=== PATIENT | male | born 1955 | race Caucasian/White ===

== ENCOUNTER 2018-04-05 13:33 | Outpatient (CLI) | payer BC ==
--- NOTE | 2018-04-05 16:44 | MRI ---
LUMBAR SPINE MRI NONCONTRAST: INDICATION: Lumbar spine disk herniation, low back pain. FINDINGS: There is edema localizing to prominent osteophytes of the anterior aspect of the L1 and L2 vertebral segments. No acute compression fracture or significant subluxation. Multilevel bilateral mild to mo derate degenerative facet hypertrophy is present. The conus medullaris is normal in morphology, term inating at the L1-2 level. L5-S1: A small disk protrusion is present effacing the ventral thecal sac. There is mild to moderat e bilateral neural foraminal narrowing. L4-5: Broad-based disk-osteophyte with left subarticular zone annular fissure is present with mild c entral canal stenosis. There is moderate left and mild right neural foraminal narrowing. L3-4: Broad-based disk-osteophyte results in mild narrowing of the central canal. There is moderate left and mild right neural foraminal narrowing. L2-3: Mild concentric disk bulge without high-grade central canal or neural foraminal stenosis. L1-2: No significant compromise of the central canal or neural foramina. IMPRESSION: Multilevel degenerative change of the lumbar spine as outlined above. POS: [facility]
== END 2018-04-05 13:34 | disposition home or self-care (01) ==
LOC: SCSMRI 13:33
PROVIDERS: ATTEND Anesthesiology Pain Medicine
DX: M51.26 Other intervertebral disc displacement, lumbar region (principal); M47.816 Spondylosis without myelopathy or radiculopathy, lumbar region
CPT/HCPCS: 72148

== ENCOUNTER 2018-04-06 13:34 | Outpatient (CLI) | payer BC ==
--- NOTE | 2018-04-06 18:06 | MRI ---
MRI THORACIC SPINE WITHOUT CONTRAST: 04/06/18 HISTORY: Low back pain and upper thoracic spine pain x1 year. COMPARISON: None. TECHNIQUE: Thoracic spine MRI is performed without intravenous gadolinium administration. Multisequential, multi planar imaging is performed. FINDINGS: An appropriate T1 marrow signal intensity of the thoracic vertebrae. Thoracic spine vertebral body he ight is maintained. No fracture. No significant STIR hyperintensity to suggest vertebral body edema o r ligamentous injury. The visualized thoracic cord has a normal size and signal intensity. Conus medullaris terminates at t he L1 level. Symmetric signal intensity to the psoas muscles. The visualized mediastinum, lung parenc hyma and solid organs have appropriate signal intensity. Neural foramina are patent throughout the thoracic spine. There is no significant central canal steno sis. T4-T5, small left paracentral disc bulge. No significant central canal stenosis. T5-T6: Small central disc bulge without significant central canal stenosis. T6-T7: Left paracentral disc bulge without significant central canal stenosis. T7-T8: Small central disc bulge with minimal mass effect upon the thecal sac and mild deformity of th e thoracic cord. Mild central canal stenosis. T8-T9: No significant central canal stenosis. 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 Neural foramina are patent throughout the thoracic spine. POS: [facility]
== END 2018-04-06 13:35 | disposition home or self-care (01) ==
LOC: SCSMRI 13:34
PROVIDERS: ATTEND Anesthesiology Pain Medicine
DX: M51.26 Other intervertebral disc displacement, lumbar region (principal); M51.34 Other intervertebral disc degeneration, thoracic region
CPT/HCPCS: 72146

== ENCOUNTER 2019-07-15 09:59 | Outpatient (CLI) | payer BC ==
--- NOTE | 2019-07-15 13:35 | CT ---
CT abdomen and pelvis without and with IV contrast HISTORY: Hematuria. COMPARISON: 10/20/2011. FINDINGS: Each renal collecting system, ureter, and urinary bladder are decompressed without stone ev ident. No filling defects are apparent within the opacified urinary collecting system on the delayed images. Tiny adenoma the right adrenal gland is stable. Solid organs are intact. No free air or free fluid. N o evidence of bowel obstruction. Degenerative changes of lumbar spine are apparent. IMPRESSION: No urinary tract abnormalities are demonstrated to explain hematuria. No other abnormalit ies are evident.
== END 2019-07-15 10:00 | disposition home or self-care (01) ==
LOC: SCSCT 09:59
PROVIDERS: ATTEND Family Medicine
DX: R31.9 Hematuria, unspecified (principal)
CPT/HCPCS: 74178

== ENCOUNTER 2019-09-06 06:24 | Day surgery (SDC) | payer BC ==
[2019-09-05 11:31] VITALS: BMI 41.3
[2019-09-06] MEDS ORDERED: Famotidine/PF 20 mg/2ml Vial ONE (07:28)
[2019-09-06] MEDS ORDERED: Fentanyl 100 MCG/2 ML VIAL ONE (07:28)
[2019-09-06 07:51] LABS: #Eosinphils 0.1 thou/uL (0.0-0.7); #Lymphocytes 2.1 thou/uL (1.20-3.40); #Monocytes 0.6 thou/uL (0.11-0.59); #Neutrophils 8.1 thou/uL (1.40-6.50); %Basophils 0.2 % (0.0-1.0); %Eosinophils 1.1 % (0.0-10.0); %Lymphocytes 19.1 % (21.0-51.0); %Monocytes 5.7 % (0.0-10.0); Hemoglobin 14.6 g/dL (14.0-18.0); Mean Corpuscular Volume 88.3 fL (78.0-98.0); Mean Platelet Volume 7.3 fL (7.4-10.4); Platelet Count 324 thou/uL (130-400); RBC Distribution Width 12.7 % (11.5-14.5); Red Blood Cell (RBC) Count 4.86 mill/uL (4.70-6.10)
[2019-09-06 07:59] LABS: Anion Gap 16 mmol/L (10-20); BUN (Urea Nitrogen) 8 mg/dL (8.4-25.7); Calc. Creatinine Clearance 153 mL/min (70-130); Calcium 8.9 mg/dL (7.8-10.44); Carbon Dioxide 28 mmol/L (23-31); Chloride 98 mmol/L (98-107); Estimated GFR-MDRD 85; Glucose 193 mg/dL (80-115); Potassium 3.6 mmol/L (3.5-5.1); Sodium 138 mmol/L (136-145)
[2019-09-06] MEDS ORDERED: Iothalamate Meglumine 60% 30 ML VIAL FS ONE ×2 (08:08→09:23)
[2019-09-06] MEDS ORDERED: SUGAMMADEX SODIUM 500 MG/5 ML VIAL ONE (08:13)
[2019-09-06 08:18] LABS: INR-International Normal Ratio 1.1; PTT 32.8 SEC (22.9-36.1)
[2019-09-06] MEDS ORDERED: mitoMYcin 40 MG in Sodium Chloride 0.9% 40 ML I-VESIC SCH (09:30)
[2019-09-06] MEDS ORDERED: PHENYLEPHRINE-NS 100 MCG/ML 10 ML SYRINGE ONE (09:42)
[2019-09-06] MEDS ORDERED: Rocuronium Bromide 10 MG/ML (10ML VIAL) ONE (09:42)
[2019-09-06] MEDS ORDERED: PROPOFOL 200 MG/20 ML VIAL ONE (09:42)
[2019-09-06] MEDS ORDERED: EPHEDRINE 25 MG/5 ML SYRINGE ONE (09:42)
[2019-09-06] MEDS ORDERED: Ondansetron PF 4 MG/2 ML Vial ONE (09:42)
[2019-09-06] MEDS ORDERED: Lidocaine 1% PF 5 ML VIAL ONE (09:42)
[2019-09-06] MEDS ORDERED: Metoclopramide HCl 10 MG/2 ML VIAL ONE (09:42)
[2019-09-06] MEDS ORDERED: B & O ONE (10:15)
--- NOTE | 2019-09-06 10:47 | RAD ---
Intravenous urogram one view: 09/06/2019 HISTORY: 63-year-old male with "bladder tumor" FINDINGS: Fluoroscopic spot image covers entire lumbar spine, but excludes the pelvis. There is contrast materi al in a nondilated right renal collecting system, incompletely imaged. There is a right ureteral stent. The upper curl is incompletely formed, partially in the renal pelvis and distal tip in a mid-l ower pole major calyx. IMPRESSION: Right ureteral stent as described above.
--- NOTE | 2019-09-07 09:10 | OP ---
DATE OF PROCEDURE: 09/06/2019 PREOPERATIVE DIAGNOSES: Bladder tumor and gross hematuria. POSTOPERATIVE DIAGNOSES: Bladder tumor and gross hematuria. PROCEDURE PERFORMED: Cystoscopy, transurethral resection of bladder tumor, right retrograde, and right stent. ANESTHESIA: General. ESTIMATED BLOOD LOSS: Minimal. FINDINGS: There is papillary, somewhat flat, slightly nodular tumor around the right ureteral orifice. This was resected because it was so adjacent to the right ureteral orifice. We went ahead and passed a stent in the mid ureter on retrograde study. There was a kink, almost like an area of tortuosity of that right ureter, which was unable to get a guidewire by, but could easily get an angled Glidewire by. It is unclear as to whether this is actually a filling defect and possibly a ureteral tumor or just an area of deviation of the ureter. We will plan on doing ureteroscopy of this when we look getting the stent out. DRAINS PLACED: 6 x 24 Polaris double-J stent without a string and 18-Gabonese Linton catheter. In addition, 40 mg of mitomycin-C replaced in the bladder at the end of the case. INDICATIONS FOR PROCEDURE: This is a 63-year-old gentleman with gross and microscopic hematuria, who on office cystoscopy was found to have a tumor around the right ureteral orifice. He is coming in for treatment for that. He has been off his Plavix for a number of days now. DESCRIPTION OF PROCEDURE: After obtaining written and verbal consent from the patient and after receiving IV antibiotics, he was taken to the operating suite. He was placed in a supine position on the treatment table. PlexiPulses were placed on his lower extremities and turned on. He was given a general anesthetic and oral obturator intubation. He was placed in the dorsal lithotomy position. He was sterilely prepped and draped. The fluoroscopy unit was placed over him for imaging. Cystoscopy was performed with a 22-Gabonese sheath. This was well lubricated and passed under direct vision through the male urethra into the urinary bladder with aid of a 30-degree lens and video camera and monitor. The bladder was filled and emptied a number of times and examined both with the 30- and 70-degree lens. The instruments were then removed, and we then gently dilated up to 26-Gabonese with [place] sounds and then passed a 24-Gabonese resectoscope sheath with a visual obturator and passed this through the male urethra into the bladder with aid of a 30-degree lens and video camera and monitor. He did have a rather high bladder neck and large prostate. At this point, we brought in our resectoscope with Gyrus generator and Gyrus bladder tumor loop, 30-degree lens video camera and monitor, resected this tumor that was around the right ureteral orifice just leaving a small rim of normal mucosa around it. These pieces were ellipsed out and sent off to Pathology. At this point, we used our coagulating current for hemostasis. We removed the instruments, replaced the cystoscope, and then through this, passed a guidewire up the right ureter. We went up about intermediate up and then stopped. We passed the open-ended catheter up to this point, removed the guidewire, injecting contrast, and found in the mid right ureter an area of abnormality, twisting of the ureter on itself or filling defect, it was difficult to tell which. We used an angled Glidewire to manipulate by this and that easily then went up into the right renal pelvis and straighten the ureter out. The open-ended catheter was advanced up into the right renal pelvis and then the Glidewire was removed and a guidewire was placed. We then passed a stent over this and pushed up into place with the aid of a pusher. Its proximal end ended up curling in the upper pole calyceal system and the lower pole. In the bladder, it did not appear to seat well, it was going across the bladder, and for this reason, we removed the stent and replaced it to get better position, repeating whole process including the angled Glidewire. Unfortunately, at this time, the radiologic capability went out. We had to call the C-arm to come in and to complete the case, and when this was done, we were able to get the stent replaced in a good position both in the bladder and in the kidney. At this point, the bladder was drained. The instruments were removed. The Linton catheter was inserted. 15 mL was placed in the balloon. The bladder was drained. The mitomycin was placed and the catheter was plugged. He will go to recovery room with that plugged. B and O suppository 60 mg was placed per rectum. He was taken out of the dorsal lithotomy position, awakened, extubated, and taken by stretcher to recovery room. In addition to the radiologic table not working at the end of the case, the video monitor was not actually working at the start of the case and there was about a 15-minute delay while this was corrected. Job ID: [id number]
--- NOTE | 2019-09-08 06:05 | PQF ---
[facility] POST DISCHARGE CLINICAL DOCUMENTATION IMPROVEMENT CLARIFICATION FORM l Todays Date: 09/08/19 l Patients Name KIARA PLATT l l Admit Date 09/06/19 l Disch Date 09/06/19 Electronics Teacher Name Matt Dennis Email: [email or web address]: [phone] To be completed by Electronics Teacher: Present Clinical Indicators - Signs / Symptoms Results and Location in Medical Record [ ] Documentation of: [ ] [ ] Documentation of: [ ] [ ] Documentation of: [ ] [ ] Documentation of: [ ] [ ] Risks [ ] [ ] [ ] Treatment [ ] Urothelial carcinoma in situ bladder Query for size (cm) of resected bladder tumor [ ] [ ] To be completed by Physician: KADE PEARCE The documentation in this patients record requires clarification to ensure coding compliance and accuracy. Check the appropriate box and include in your discharge summary. [ ] [ ] [ ] [ ] Please check this box if this does not apply to this patient [ ] Unable to determine [ ] Other diagnosis: Review the following information and exercise your independent professional judgment in responding to the clarification. Based upon the clinical findings, risk factors, and treatment, please clarify if you are treating one of the above probable or suspected diagnoses. Physician Signature: Date Time MTDD
== END 2019-09-06 13:25 | disposition home or self-care (01) ==
LOC: SDC 06:24
PROVIDERS: ATTEND Urology
PROC: 0T768DZ Dilation of Right Ureter with Intraluminal Device, Via Natural or Artificial Opening Endoscopic (ICD-10-PCS; principal; 2019-09-06)
DX: D09.0 Carcinoma in situ of bladder (principal); I11.0 Hypertensive heart disease with heart failure; I50.9 Heart failure, unspecified; I25.10 Atherosclerotic heart disease of native coronary artery without angina pectoris; E11.9 Type 2 diabetes mellitus without complications; E78.5 Hyperlipidemia, unspecified; E66.9 Obesity, unspecified; F32.9 Major depressive disorder, single episode, unspecified; J45.909 Unspecified asthma, uncomplicated; I42.9 Cardiomyopathy, unspecified; G89.29 Other chronic pain; M54.9 Dorsalgia, unspecified; M19.90 Unspecified osteoarthritis, unspecified site; K21.9 Gastro-esophageal reflux disease without esophagitis; Z68.41 Body mass index [BMI] 40.0-44.9, adult; Z79.02 Long term (current) use of antithrombotics/antiplatelets; Z79.82 Long term (current) use of aspirin; Z79.84 Long term (current) use of oral hypoglycemic drugs; Z79.899 Other long term (current) drug therapy; Z95.5 Presence of coronary angioplasty implant and graft
CPT/HCPCS: 36415; 74420; 80048; 85025; 85610; 85730; 88305; 88341; 88342; C1758; C1769; J0690; J2001; J2405; J2704; J2765; J3010; J9280; S0028

== ENCOUNTER 2019-10-13 06:20 | Outpatient (CLI) | payer BC, OTHER ==
[2019-10-13 12:28] LABS: #Basophils 0.1 thou/uL (0.0-0.2); #Eosinphils 0.3 thou/uL (0.0-0.7); #Lymphocytes 2.6 thou/uL (1.20-3.40); #Monocytes 0.6 thou/uL (0.11-0.59); #Neutrophils 8.8 thou/uL (1.40-6.50); %Basophils 0.5 % (0.0-1.0); %Eosinophils 2.1 % (0.0-10.0); %Lymphocytes 20.9 % (21.0-51.0); %Monocytes 5.2 % (0.0-10.0); %Neutrophils 71.3 % (42.0-75.0); Hemoglobin 14.1 g/dL (14.0-18.0); Mean Corpuscular HGB CONC 35.3 g/dL (32.0-36.0); Mean Corpuscular Hemoglobin 30.7 pg (27.0-31.0); Mean Corpuscular Volume 86.8 fL (78.0-98.0); Mean Platelet Volume 7.8 fL (7.4-10.4); Platelet Count 306 thou/uL (130-400); RBC Distribution Width 12.4 % (11.5-14.5); Red Blood Cell (RBC) Count 4.59 mill/uL (4.70-6.10); White Blood Cell (WBC) Count 12.4 thou/uL (4.8-10.8)
[2019-10-13 12:44] LABS: Anion Gap 16 mmol/L (10-20); BUN (Urea Nitrogen) 10 mg/dL (8.4-25.7); Calc. Creatinine Clearance 0 mL/min (70-130); Calcium 8.7 mg/dL (7.8-10.44); Carbon Dioxide 27 mmol/L (23-31); Chloride 99 mmol/L (98-107); Estimated GFR-MDRD 67; Glucose 188 mg/dL (80-115); Sodium 139 mmol/L (136-145)
[2019-10-13 18:20] LABS: SARS-CoV-2 MS2 Positive; SARS-CoV-2 N Gene Negative; SARS-CoV-2 S Gene Negative; SARS-CoV-2 orf1ab Negative
== END 2019-10-13 06:21 | disposition home or self-care (01) ==
LOC: LABBT 06:20
PROVIDERS: ATTEND Urology
DX: Z01.818 Encounter for other preprocedural examination (principal); Z11.59 Encounter for screening for other viral diseases; R93.41 Abnormal radiologic findings on diagnostic imaging of renal pelvis, ureter, or bladder
CPT/HCPCS: 80048; 85025; 87635; 93005; 93010; U0003

== ENCOUNTER 2019-10-17 06:54 | Day surgery (SDC) | payer BC ==
[2019-10-17] MEDS ORDERED: Insulin Regular 300 UNITS/3 ML VIAL ONE (08:14)
[2019-10-17] MEDS ORDERED: Iopamidol 50 ML FS ONE (08:26)
[2019-10-17] MEDS ORDERED: Fentanyl 100 MCG/2 ML VIAL ONE (08:36)
[2019-10-17] MEDS ORDERED: Lidocaine 1% PF 5 ML VIAL ONE (13:12)
[2019-10-17] MEDS ORDERED: PROPOFOL 200 MG/20 ML VIAL ONE (13:12)
[2019-10-17] MEDS ORDERED: EPHEDRINE 25 MG/5 ML SYRINGE ONE (13:12)
[2019-10-17] MEDS ORDERED: PHENYLEPHRINE-NS 100 MCG/ML 10 ML SYRINGE ONE (13:12)
[2019-10-17] MEDS ORDERED: Glycopyrrolate 0.2 MG/ML 5 ML SYRINGE ONE (13:12)
[2019-10-17] MEDS ORDERED: Ondansetron PF 4 MG/2 ML Vial ONE (13:12)
--- NOTE | 2019-10-17 14:42 | OP ---
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 PROCEDURES PERFORMED: Cystoscopy, removal of the right stent, right retrograde, flexible ureteroscopy with biopsy, right ureteral stent replacement, and bladder biopsies. SPECIMENS: Biopsies from right mid ureter. Specimens from bladder, which were biopsies from old tumor site and then random bladder biopsies. DRAINS PLACED: 6 x 24 Polaris double-J stent and a string was not left attached. No Linton catheter was placed. ESTIMATED BLOOD LOSS: Less than 50 mL. FINDINGS: There was no evidence of urethral strictures very large prostate with a high-riding bladder neck. There was some area of non-healed tissue on the floor of the bladder and trigone from his prior resection. The biopsies were done of this. Random biopsies of the normaal appearing bladder wall were done. I did not see any obvious evidence of recurrent bladder cancer. The right ureter on retrograde study showed some mild hydronephrosis of the proximal ureter down to about its junction with the lower third ureter across the pelvic brim. On the direct vision with the flexible ureteroscope, there was tissue there that was suspicious for transitional cell cancer, we did biopsies of this. It was very tight also. In this region, we had to use the flexible cystoscope to work by it as I could not get a dual-lumen catheter go by it. I felt there was probably during the biopsies a small hole placed in the ureter at this point, but we did not see any extravasation from this point when we did a retrograde at the end of the procedure. DESCRIPTION OF PROCEDURE: After obtaining written and verbal consent from the patient after be given IV antibiotics, he was taken to the operating suite. He was placed in a supine position on the treatment table. PlexiPulses were placed on his lower extremities and turned on. He was given a general anesthetic and oral obturator intubation. He was placed in the dorsal lithotomy position and sterilely prepped and draped. The fluoroscopy unit was placed in position over him, so we could see the right ureter in its entirety. Cystoscopy was performed with a 22-Turkmen sheath, this was well lubricated and passed under direct vision through the male urethra into the urinary bladder with aid of a 30-degree lens and a video camera and monitor. The bladder was filled and emptied a couple of times and the distal end of the double-J stent was grasped and was removed intact. Pollack catheter was brought in and an angled Glidewire was placed through it. It was placed through the ureteral orifice and up the right ureter. It easily went all the way up to the area of the renal pelvis. The Pollack catheter was placed over this and went up to probably 3 cm to 4 cm before we stopped placing it any further as I wanted to do a retrograde study in this region. We removed the angled Glidewire and did a retrograde study that showed an area of abnormal ureter just over the pelvic inlet right on top of this sacral alar region and pelvic bones. We went ahead and fed a guidewire past this point and removed the Pollack catheter, then we brought in a dual-lumen catheter and placed it over this guidewire and passed it up to this point. It would actually not go by this point. We were able to feed a blue stiff wire by this point. We then removed the dual lumen catheter and over the blue stiff wire, we passed the ureteral sheath with obturator up to this region. We removed the obturator and went in over the blue guidewire with our flexible ureteroscope up to this point. We then removed the blue guidewire, so I had better visibility and we were able to look at this region, it was narrowed and there was abnormal appearing mucosa. We then brought in a Piranha biopsy forceps and did multiple biopsies of this tissue. As we were able to do this, we were able to get past this point with the ureteroscope and we were able to look all the way up into the proximal ureter and renal pelvis. There was some edema of the bhardwaj. It did not look like there was any obvious tumor in this region. On looking out, we followed the course of the ureter. The green guidewire was left in good place intraluminally from the beginning of the case. It did look like there may have been a small breach of the ureteral wall along where we were reducing some of the biopsies. We looked with the ureteral sheath all the way out and the distal ureter did not have any other abnormality. At this point, we backloaded our guidewire through our 22- Turkmen sheath and replaced this into the bladder. Pollack catheter was advanced over the green guidewire and placed up in the region of the renal pelvis. Wire was removed. We injected contrast to fill out this system as well as the ureter. We did not see any contrast extravasation down the course of the ureter, but did see some just from the calyceal region. At this point, the wires were placed through the Pollack catheter. The Pollack catheter was removed. We brought in a 6 x 24 Polaris double-J stent, placed it over the guidewire and pushed up into place with aid of a pusher, so its proximal end coiled in the upper calyceal system, its distal end coiled in the bladder when the wire was removed. We then went ahead and brought in our biopsy forceps and used this to biopsy prior resection site on the floor as well as some random biopsies of the otherwise normal-appearing mucosa. These were sent off to Pathology. A Bugbee unit was then used to cauterize these sites. The instruments were removed. The patient was taken out of dorsal lithotomy position, awakened, extubated, and taken by stretcher to recovery room. Job ID: [id number] [facility]
--- NOTE | 2019-10-17 15:45 | RAD ---
RETROGRADE PYELOGRAM: Date: 10-17-2019 Comparison: 09-06-2019 History: Stent placement, stone removal. FINDINGS: A double J ureteral stent was present on the right on the first image. Later imaging demonstrates con trast media within a dilated renal collecting system on the right. Some of the later images demonstra fidencio mild extravasation of contrast media in the upper pole and midpole regions of the right kidney m edially. Final imaging demonstrates placement of double J ureteral stent on the right. IMPRESSION: Placement of a right double J ureteral stent as above. There is hydronephrosis/caliceal blunting on t he right, incompletely assessed on this exam. POS: [facility]
== END 2019-10-17 12:50 | disposition home or self-care (01) ==
LOC: SDC 06:54
PROVIDERS: ATTEND Urology
PROC: 0TBB8ZX Excision of Bladder, Via Natural or Artificial Opening Endoscopic, Diagnostic (ICD-10-PCS; principal; 2019-10-17)
PROC: 0T768DZ Dilation of Right Ureter with Intraluminal Device, Via Natural or Artificial Opening Endoscopic (ICD-10-PCS; principal; 2019-10-17)
DX: C67.0 Malignant neoplasm of trigone of bladder (principal); E11.9 Type 2 diabetes mellitus without complications; I10 Essential (primary) hypertension; I25.10 Atherosclerotic heart disease of native coronary artery without angina pectoris; K21.9 Gastro-esophageal reflux disease without esophagitis; Z79.82 Long term (current) use of aspirin; Z79.84 Long term (current) use of oral hypoglycemic drugs; Z79.899 Other long term (current) drug therapy; Z95.5 Presence of coronary angioplasty implant and graft
CPT/HCPCS: 36416; 74420; 88305; 88341; 88342; J0690; J1815; J2001; J2405; J2704; J3010; Q9967

== ENCOUNTER 2020-10-17 09:27 | Outpatient (CLI) | payer MEDICARE ==
[2020-10-17 10:37] LABS: Hemoglobin 13.7 g/dL (13.5-17.5); Mean Corpuscular HGB CONC 33.1 g/dL (32.0-36.0); Mean Corpuscular Hemoglobin 28.7 pg (27.0-33.0); Mean Corpuscular Volume 86.8 fl (81.2-95.1); Mean Platelet Volume 10.3 fl (7.4-10.4); Platelet Count 347 10x3/uL (150-450); RBC Distribution Width 13.4 % (11.5-14.5); Red Blood Cell (RBC) Count 4.77 10x6/uL (4.32-5.72); White Blood Cell (WBC) Count 11.7 10x3/uL (3.5-10.5)
[2020-10-17 10:50] LABS: INR-International Normal Ratio 1.1; PTT 25.6 sec (22.0-33.0); Prothrombin Time 12.4 sec (9.5-12.1)
[2020-10-17 11:14] LABS: Anion Gap 18 mmol/L (10-20); BUN (Urea Nitrogen) 11 mg/dL (8.4-25.7); Calc. Creatinine Clearance 0 mL/min (70-130); Calcium 9.7 mg/dL (7.8-10.44); Carbon Dioxide 28 mmol/L (23-31); Chloride 100 mmol/L (98-107); Glucose 148 mg/dL (80-115); Potassium 3.7 mmol/L (3.5-5.1); Sodium 142 mmol/L (136-145)
[2020-10-17 11:19] LABS: Bilirubin Neg (Negative); Blood, Urine 10 (Negative); Clarity Clear (Clear); Glucose, Urine (Dipstick) 50 mg/dL (Negative); Ketone, Urine Negative (Negative); Leukocyte Negative (Negative); Nitrite Negative (Negative); Protein, Urine (Dipstick) 100 mg/dl (Neg-Trace); Specific Gravity, Urine 1.015 (1.002-1.036)
[2020-10-17 12:16] LABS: RBC/HPF 0-3 HPF (0-3); WBC/HPF None Seen HPF (0-3)
[2020-10-17 12:17] LABS: Bacteria/HPF None Seen HPF (None Seen); Squamous Epithelial 0-3 HPF (0-3)
== END 2020-10-17 09:28 | disposition home or self-care (01) ==
LOC: LABBT 09:27
PROVIDERS: ATTEND Urology
DX: Z01.812 Encounter for preprocedural laboratory examination (principal); N32.9 Bladder disorder, unspecified
CPT/HCPCS: 80048; 81001; 85027; 85610; 85730; 87086

== ENCOUNTER 2020-10-22 10:09 | Day surgery (SDC) | payer MEDICARE ==
[2020-10-19 10:17] VITALS: BMI 41.1
[2020-10-22] MEDS ORDERED: Fentanyl 100 MCG/2 ML VIAL ONE (10:39)
[2020-10-22] MEDS ORDERED: Famotidine/PF 20 mg/2ml Vial ONE (10:39)
[2020-10-22] MEDS ORDERED: Ondansetron PF 4 MG/2 ML Vial ONE ×2 (10:40→10:57)
[2020-10-22] MEDS ORDERED: Metoclopramide HCl 10 MG/2 ML VIAL ONE ×2 (10:40→10:57)
[2020-10-22] MEDS ORDERED: Iothalamate Meglumine 60% 50 ML VIAL FS ONE (10:44)
[2020-10-22] MEDS ORDERED: SUGAMMADEX SODIUM 500 MG/5 ML VIAL ONE (10:50)
[2020-10-22] MEDS ORDERED: PROPOFOL 200 MG/20 ML VIAL ONE (10:57)
[2020-10-22] MEDS ORDERED: ePHEDrine Sulfate 50 MG/10 ML VIAL ONE (10:57)
[2020-10-22] MEDS ORDERED: Rocuronium Bromide 10 MG/ML (10ML VIAL) ONE (10:57)
[2020-10-22] MEDS ORDERED: Lidocaine 1% PF 5 ML VIAL ONE (10:57)
[2020-10-22] MEDS ORDERED: Albuterol Sulfate HFA (OR ONLY) ONE (10:57)
== END 2020-10-22 15:38 | disposition home or self-care (01) ==
LOC: SDC 10:09
PROVIDERS: ATTEND Urology
PROC: 0T5B8ZZ Destruction of Bladder, Via Natural or Artificial Opening Endoscopic (ICD-10-PCS; principal; 2020-10-22)
PROC: BT14ZZZ Fluoroscopy of Kidneys, Ureters and Bladder (ICD-10-PCS; 2020-10-22)
DX: N30.00 Acute cystitis without hematuria (principal); N30.20 Other chronic cystitis without hematuria; N13.30 Unspecified hydronephrosis; E11.9 Type 2 diabetes mellitus without complications; I10 Essential (primary) hypertension; M19.90 Unspecified osteoarthritis, unspecified site; I25.10 Atherosclerotic heart disease of native coronary artery without angina pectoris; Z79.02 Long term (current) use of antithrombotics/antiplatelets; Z79.82 Long term (current) use of aspirin; Z79.84 Long term (current) use of oral hypoglycemic drugs; Z79.899 Other long term (current) drug therapy; Z95.5 Presence of coronary angioplasty implant and graft
CPT/HCPCS: 52005; 52234; 74420; 88305; 93005; Q9961; 93010; J0690; J2405; J2704; J2765; J3010; S0028

== ENCOUNTER 2020-12-25 08:59 | Outpatient (CLI) | payer MEDICARE | END 2020-12-25 09:00 | disposition home or self-care (01) | LOC: BICMRI 08:59 → SCSMRI 09:00 | PROVIDERS: ATTEND Anesthesiology Pain Medicine | DX: M51.24 Other intervertebral disc displacement, thoracic region (principal); M47.814 Spondylosis without myelopathy or radiculopathy, thoracic region | CPT/HCPCS: 72146 ==